=== PATIENT | male | born 1965 | race Caucasian/White ===

== ENCOUNTER 2025-06-06 22:03 | Inpatient (IN) | payer OTHER, SELFPAY ==
[2025-06-06 17:05] VITALS: BP 103/83
--- NOTE | 2025-06-06 17:21 | ED.GENMED ---
History of Present Illness
<Aleisha Kapoor PA-C - Last Filed: 06/07/25 13:19>
General
Chief Complaint: Flank Pain
Source: patient
Exam Limitations: none
Time Seen by Provider: 06/06/25 17:21
Nursing documentation reviewed up to this point in time: agreed with
History of Present Illness
History of Present Illness:
Patient is a 59-year-old male who presents to the emergency department with acute onset right flank pain. Patient states he was sitting on the couch approximately 2 hours ago when he had sudden onset pain in his right flank. Patient states pain
seemed to dissipate mildly however then returned and has been excruciating since. He did have 1 episode of syncope and accompanying nausea with a few episodes of vomiting. No obvious hematuria or notable dysuria. No associated chest pain or
shortness of breath. No fever.
Earlier today he was doing some light yard work however no known inciting injury or trauma. Pain was not clearly postprandial in nature.
No past history of kidney stones or similar symptoms. He has had an appendectomy in the past.
Past History
<Aleisha Kapoor PA-C - Last Filed: 06/07/25 13:19>
Past History
ED Past Surgical History: None
Patient has exhibited threatening behavior?: No
Social History
Tobacco: Non-smoker
Drug: None
Personal:
Living: with family
Employment: Employed
Review of Systems
<Aleisha Kapoor PA-C - Last Filed: 06/07/25 13:19>
Review of Systems
Allergies reviewed?: Yes
All Other Systems: ROS reviewed and negative except as documented in HPI and ROS
Phy Exam
<Aleisha Kapoor PA-C - Last Filed: 06/07/25 13:19>
Physical Exam
Physical Exam:
Vitals: Patient's vital signs are stable. Afebrile
General: Patient is moderately uncomfortable appearing, pale
Skin: Warm and dry, no rashes or lesions
Head: Normocephalic, atraumatic
Eyes: Sclera nonicteric.
Throat: Protecting airway
Neck: Normal ROM, no cervical spine tenderness, no meningismus
Cardiac: Regular rate and rhythm, no murmurs. Palpable and equal distal pulses bilaterally.
Pulm: Normal respiratory effort, no wheezes, rales, rhonchi heard on exam
.
Abdomen: Abdomen soft. No reproducible tenderness in abdomen. No CVA tenderness.
Extremities: No evidence of cyanosis or edema
Neuro: AAOx3. Grossly intact.
Psychiatric: Normal affect.
Course
<Aleisha Kapoor PA-C - Last Filed: 06/07/25 13:19>
Orders/Labs/Results
Orders:
Orders
06/06/25 Breakfast
Regular
At Your Request: Full Participation
Does patient need a safe tray?: No
Reason for opting out of Property Valuer order writing: Provider Decision
06/06/25 17:35
Abdomen/Pelvis wo Contrast CT [CT Abd/pelvis Wo Iv Cont] Urgent
Comment:
Reason For Exam: acute onset right flank pain
0.9% Sodium Chloride 1000 ml [Nss] 1,000 ml IV BOLUS
HYDROmorphone [Dilaudid] 0.5 mg IV NOW STA
Ondansetron Injectable [Zofran] 4 mg IV NOW STA
06/06/25 17:47
Complete Blood Count/With Diff Urgent
Comprehensive Metabolic Panel Urgent
Lipase Urgent
Comment: ADD ON
06/06/25 18:11
HYDROmorphone [Dilaudid] 0.5 mg .ROUTE .STK-MED ONE
06/06/25 18:12
HYDROmorphone [Dilaudid] 0.5 mg IV NOW STA
06/06/25 19:23
Add On- LAB Urgent
Tests Added?: lipase
06/06/25 19:25
HYDROmorphone [Dilaudid] 0.5 mg IV NOW STA
06/06/25 19:32
Urinalysis Reflex To Culture Urgent
Date Specimen was Collected: 06/06/25
Time Specimen was Collected: 19:19
Urine Microscopic Reflex Cult Urgent
Urine Culture Urgent
ABUNDIO Source: U
Specimen Description:
Date Specimen was Collected: 06/06/25
Time Specimen was Collected: 19:19
06/06/25 20:26
Acetaminophen [Tylenol] 1,000 mg PO NOW STA
Tamsulosin [Flomax] 0.4 mg PO NOW STA
06/06/25 20:42
0.9% Sodium Chloride 1000 ml [Nss] 1,000 ml IV BOLUS
06/06/25 21:29
Admit/Transfer Patient As Directed
Co-Sign Provider:
Level of Care: Inpatient admission
Assign to:: Telemetry
Physician / Group: Nii
Diagnosis: R Ureteral Stone
Reason for Telemetry: Syncope
Date to Stop Telemetry: 06/08/25
Time to Stop Telemetry: 11:00
Reason for Hospitalization: R Ureteral Stone
Expected length of stay greater than two midnights?: Yes
ELOS- Estimated Length of Stay in days: 2
I certify the patient meets the requirements for IP care: Yes
PRN Pain Medication Management As Directed
May give lesser potent ordered pain med per pt: Yes
preference::
Protocol:: Medication orders for pain may be administered in a
manner that supports deferring to patient preference
when the pt is:
- Requesting an ordered lesser potent pain medication.
Least to most potent pain medications are defined
as: acetaminophen < NSAID < tramadol < opioids
(morphine, oxycodone, hydromorphone).
- Requesting a lesser dose of the same medication IF
ORDERED.
- Requesting a less intrusive route of administration
if both routes are prescribed by the provider (PO <
IV).
06/06/25 21:30
Code Status As Directed
Resuscitation Status: Full Code
06/06/25 22:39
0.9% Sodium Chloride 1000 ml [Nss] 1,000 ml IV 200 mls/hr
Acetaminophen [Tylenol] 650 mg PO Q4HPRN PRN
HYDROmorphone [Dilaudid] 0.5 mg IV Q4HPRN PRN
Ketorolac [Toradol] 10 mg IV Q6HPRN PRN
Ondansetron Injectable [Zofran] 4 mg IV Q6HPRN PRN
06/06/25 22:39
UROLOGY CONSULT Routine
Consulting Provider: Frederick Bowling
Was physician already notified: Yes
Comment: R Ureteral Stone
Stone Analysis With Image [S] Routine
Activity As Directed
Activity Level: Ambulate
I/O [Intake/ Output] As Directed
Frequency: Per unit guidelines
Pneumatic Compression Sleeves As Directed
Type: Knee high
Strain Urine As Directed
Vital Signs As Directed
Frequency: Per unit guidelines
Weight As Directed
Frequency: Daily
Oxygen Therapy [O2 Therapy] [RESP] Routine
Titrate/Wean O2 to maintain O2 sat greater than (%): 94
DX Deep Vein Thrombosis Video Routine
06/07/25 Breakfast
NPO
Allow oral meds: Yes
Allow clear liquids: Sips of Clears
NPO for procedure after (time): 7 AM
06/07/25 08:00
Tamsulosin [Flomax] 0.4 mg PO BID
06/07/25 08:02
Basic Metabolic Panel IN AM
Complete Blood Count/No Diff IN AM
06/08/25 11:00
DC Protocol for Telemetry ONCE
Abnormal Lab Results
06/06/25 06/06/25
17:47 19:32
WBC 15.8 H 10^3/uL
(4.8-10.8)
Abs Immat Gran (auto) 0.1 H 10^3/uL
(0-0.05)
Absolute Neuts (auto) 11.3 H 10^3/uL
(1.4-6.5)
Absolute Monos (auto) 1.4 H 10^3/uL
(0.1-0.6)
Lymphocytes % 14.2 L %
(20.5-51.1)
Glucose 109 H mg/dl
(70-99)
Urine Ketones 3+ A
(Negative)
Ur Occult Blood Reflex 4+ A
(Negative)
Leukocyte Esterase Rfl 1+ A
(Negative)
Urine RBC >100 A /HPF
(0-2)
Urine Albumin (Reflex) 2+ A
(Neg - Trace)
06/06/25 17:47
06/06/25 17:47
Vital Signs
Initial and Last Documented VS:
Initial Vital Signs
Temp Pulse Resp BP Pulse Ox
98 F 59 16 103/83 98
06/06/25 17:05 06/06/25 17:05 06/06/25 17:05 06/06/25 17:05 06/06/25 17:05
Last Documented Vital Signs
Temp Pulse Resp BP Pulse Ox
98.7 F 79 16 118/66 98
06/07/25 11:31 06/07/25 11:31 06/07/25 11:31 06/07/25 11:31 06/07/25 11:31
<Teofilo Cody, DO - Last Filed: 06/06/25 20:47>
Orders/Labs/Results
Orders:
Orders
06/06/25 Breakfast
Regular
At Your Request: Full Participation
Does patient need a safe tray?: No
Reason for opting out of Property Valuer order writing: Provider Decision
06/06/25 17:35
Abdomen/Pelvis wo Contrast CT [CT Abd/pelvis Wo Iv Cont] Urgent
Comment:
Reason For Exam: acute onset right flank pain
0.9% Sodium Chloride 1000 ml [Nss] 1,000 ml IV BOLUS
HYDROmorphone [Dilaudid] 0.5 mg IV NOW STA
Ondansetron Injectable [Zofran] 4 mg IV NOW STA
06/06/25 17:47
Complete Blood Count/With Diff Urgent
Comprehensive Metabolic Panel Urgent
Lipase Urgent
Comment: ADD ON
06/06/25 18:11
HYDROmorphone [Dilaudid] 0.5 mg .ROUTE .STK-MED ONE
06/06/25 18:12
HYDROmorphone [Dilaudid] 0.5 mg IV NOW STA
06/06/25 19:23
Add On- LAB Urgent
Tests Added?: lipase
06/06/25 19:25
HYDROmorphone [Dilaudid] 0.5 mg IV NOW STA
06/06/25 19:32
Urinalysis Reflex To Culture Urgent
Date Specimen was Collected: 06/06/25
Time Specimen was Collected: 19:19
Urine Microscopic Reflex Cult Urgent
Urine Culture Urgent
ABUNDIO Source: U
Specimen Description:
Date Specimen was Collected: 06/06/25
Time Specimen was Collected: 19:19
06/06/25 20:26
Acetaminophen [Tylenol] 1,000 mg PO NOW STA
Tamsulosin [Flomax] 0.4 mg PO NOW STA
06/06/25 20:42
0.9% Sodium Chloride 1000 ml [Nss] 1,000 ml IV BOLUS
06/06/25 21:29
Admit/Transfer Patient As Directed
Co-Sign Provider:
Level of Care: Inpatient admission
Assign to:: Telemetry
Physician / Group: Nii
Diagnosis: R Ureteral Stone
Reason for Telemetry: Syncope
Date to Stop Telemetry: 06/08/25
Time to Stop Telemetry: 11:00
Reason for Hospitalization: R Ureteral Stone
Expected length of stay greater than two midnights?: Yes
ELOS- Estimated Length of Stay in days: 2
I certify the patient meets the requirements for IP care: Yes
PRN Pain Medication Management As Directed
May give lesser potent ordered pain med per pt: Yes
preference::
Protocol:: Medication orders for pain may be administered in a
manner that supports deferring to patient preference
when the pt is:
- Requesting an ordered lesser potent pain medication.
Least to most potent pain medications are defined
as: acetaminophen < NSAID < tramadol < opioids
(morphine, oxycodone, hydromorphone).
- Requesting a lesser dose of the same medication IF
ORDERED.
- Requesting a less intrusive route of administration
if both routes are prescribed by the provider (PO <
IV).
06/06/25 21:30
Code Status As Directed
Resuscitation Status: Full Code
06/06/25 22:39
0.9% Sodium Chloride 1000 ml [Nss] 1,000 ml IV 200 mls/hr
Acetaminophen [Tylenol] 650 mg PO Q4HPRN PRN
HYDROmorphone [Dilaudid] 0.5 mg IV Q4HPRN PRN
Ketorolac [Toradol] 10 mg IV Q6HPRN PRN
Ondansetron Injectable [Zofran] 4 mg IV Q6HPRN PRN
06/06/25 22:39
UROLOGY CONSULT Routine
Consulting Provider: Frederick Bowling
Was physician already notified: Yes
Comment: R Ureteral Stone
Stone Analysis With Image [S] Routine
Activity As Directed
Activity Level: Ambulate
I/O [Intake/ Output] As Directed
Frequency: Per unit guidelines
Pneumatic Compression Sleeves As Directed
Type: Knee high
Strain Urine As Directed
Vital Signs As Directed
Frequency: Per unit guidelines
Weight As Directed
Frequency: Daily
Oxygen Therapy [O2 Therapy] [RESP] Routine
Titrate/Wean O2 to maintain O2 sat greater than (%): 94
DX Deep Vein Thrombosis Video Routine
06/07/25 Breakfast
NPO
Allow oral meds: Yes
Allow clear liquids: Sips of Clears
NPO for procedure after (time): 7 AM
06/07/25 08:00
Tamsulosin [Flomax] 0.4 mg PO BID
06/07/25 08:02
Basic Metabolic Panel IN AM
Complete Blood Count/No Diff IN AM
06/08/25 11:00
DC Protocol for Telemetry ONCE
Abnormal Lab Results
06/06/25 06/06/25
17:47 19:32
WBC 15.8 H 10^3/uL
(4.8-10.8)
Abs Immat Gran (auto) 0.1 H 10^3/uL
(0-0.05)
Absolute Neuts (auto) 11.3 H 10^3/uL
(1.4-6.5)
Absolute Monos (auto) 1.4 H 10^3/uL
(0.1-0.6)
Lymphocytes % 14.2 L %
(20.5-51.1)
Glucose 109 H mg/dl
(70-99)
Urine Ketones 3+ A
(Negative)
Ur Occult Blood Reflex 4+ A
(Negative)
Leukocyte Esterase Rfl 1+ A
(Negative)
Urine RBC >100 A /HPF
(0-2)
Urine Albumin (Reflex) 2+ A
(Neg - Trace)
06/06/25 17:47
06/06/25 17:47
Vital Signs
Initial and Last Documented VS:
Initial Vital Signs
Temp Pulse Resp BP Pulse Ox
98 F 59 16 103/83 98
06/06/25 17:05 06/06/25 17:05 06/06/25 17:05 06/06/25 17:05 06/06/25 17:05
Last Documented Vital Signs
Temp Pulse Resp BP Pulse Ox
98.7 F 79 16 118/66 98
06/07/25 11:31 06/07/25 11:31 06/07/25 11:31 06/07/25 11:31 06/07/25 11:31
<Aleisha Kapoor PA-C - Last Filed: 06/07/25 13:19>
MDM/Problems Addressed
Differential Diagnosis Includes:
Not limited to: Renal colic, UTI, muscle strain/spasm, biliary colic, etc.
MDM/Problems Addressed:
59-year-old male with acute onset right flank pain accompanied by one episode of syncope and nausea. No fevers, vomiting, urinary discomfort. No chest pain or shortness of breath. No known inciting trauma.
Vitals and physical exam as above.
Clinical picture most consisting with renal colic. Suspect syncopal event likely vagal in nature secondary to pain. No exam findings consistent with vascular emergency. Patient is hemodynamically stable.
ED plan: labs, UA, noncontrast CT scan abdomen/pelvis. Will treat pain, give IV fluids and reassess.
Update: CBC reveals leukocytosis, which I suspect to be reactive to pain/ syncope. Chemistry unremarkable with no evidence of renal insufficiency. Urine with many RBCs however no clear indicators of associated infection. CT scan shows 5 mm
obstructing stone at right UVJ with moderate hydronephrosis.
Findings discussed with patient and family at length. He remains with persistent discomfort despite multiple rounds of IV Dilaudid. Patient does have aspirin allergy and is unable to receive Toradol.
While no evidence of associated infection � patient will require admission to the hospital for pain control and possible urology evaluation.
Patient accepted to hospitalist service in stable condition. Urology aware and will evaluate tomorrow to see if stone has passed vs need for possible stent. Patient and patient�s family comfortable with plan.
Chronic conditions affecting care:
N/A
Acute Exacerbation and/or Progression of Chronic Illness:
N/A
<Aleisha Kapoor PA-C - Last Filed: 06/07/25 13:19>
*Pulse Oximetry
SaO2: 98
Oxygen Mode of Delivery: Room air
Patient hypoxic: no
*EKG
Interpreted by ED Provider?: NA
*Production Expediter Interpretation
Rate: Production Expediter- N/A
*Critical Care Note
Total Time (30-74mins, 75-104mins- exclusive of procedures): Not Applicable
<Aleisha Kapoor PA-C - Last Filed: 06/07/25 13:19>
Patient Management
Discussion with other providers: Hospitalist and Edging Machine Catcher (Case discussed with urology)
Escalation/DeEscalation of care consider admission/obs:
Admit for pain management, possible urology evaluation and stent placement
ED Attending Note
<Aleisha Kapoor PA-C - Last Filed: 06/07/25 13:19>
-
Portions of this chart may have been created with voice recognition software.� Occasional wrong word or��sound alike� substitutions may have occurred due to the inherent limitations of voice recognition software.
<Teofilo Cody DO - Last Filed: 06/06/25 20:47>
ED Attending Note
Patient seen and examined by attending physician: Yes
I performed the substantive portion of visit, reviewed & personally made and approve the management plan that is documented in note by myself or GINNA.: Yes
I performed a history and physical exam of patient and discussed management with resident, I reviewed resident's note and agree with documented findings and plan of care.: Yes
ED Attending Note:
59 y/o male presents for treatment and eval of severe R flank pain now migrating to RLQ. No prior h/o same. Pt required multiple doses of narcotic for pain relief and still reporting pain to be severe. VS reviewed, mmm, GCS 15, pt laying
comfortably in the stretcher during interview. I reviewed all test results with physician medical support assistant, patient and present bedside. I discussed with them benefit of admission given severe pain which is uncontrolled with medications administered
in the ER. I discussed with them likely passage of stone, however he requires additional pain relief. They agree with plan at current. PA was able to review presentation with hospitalist who accepts patient for admission
Discharge Plan
Departure
Patient Disposition: Admit
Date of Disposition: 06/06/25
Time of Disposition: 20:25
Presentation/result/management discussed w/ accepting MD/DO: Hospitalist
Discharge Problem:
Calculus of ureterovesical junction (UVJ), Intractable pain
Interventions
Interventions:
*Risk Screen - Suicide Last Done: 06/06/25 22:57
*General Assessment Last Done: 06/06/25 17:52
*Neglect/Abuse Screening Last Done: 06/06/25 17:06
*ED- Fall Risk Assessment Last Done: 06/06/25 17:52
*ED COVID-19 Vaccine History Last Done: 06/06/25 22:57
*Nursing Disposition Last Done: 06/06/25 22:53
AD-Ycsvcu-Lbcivtdvxt Assessment Last Done: 06/06/25 21:30
ED-Male Genitourinary Assessment Last Done: 06/06/25 21:30
Discharge Date and Time
Discharge Date/Time: 06/06/25 22:54
[2025-06-06] MEDS: DILAUDID 0.5 MG IV ×3 (17:48→19:31)
[2025-06-06] MEDS: ZOFRAN 4 MG IV (17:48)
[2025-06-06] MEDS: NSS 1000 IV ×3 (17:50→23:55)
[2025-06-06 17:52] VITALS: BMI 19.0
[2025-06-06 18:18] LABS: Hematocrit 43.1 % (39.0-52.0); Hemoglobin 14.4 g/dL (13.0-18.0); Mean Corp Hgb Conc. 33.4 g/dL (33.0-37.0); Mean Corpuscular Volume 86.4 fL (80.0-94.0); Nucleated Red Blood Cells % 0 % (-); Platelet Count 236 10^3/uL (130-400); Red Cell Dist. Width 13.1 % (11.5-14.5)
[2025-06-06 18:33] LABS: ALT (SGPT) 32 U/L (0-50); AST (SGOT) 28 U/L (17-59); Albumin 4.2 g/dl (3.5-5.0); Alkaline Phosphatase 40 U/L (38-126); Calcium 9.5 mg/dl (8.4-10.2); Carbon Dioxide 26 mmol/L (22-30); Chloride 104 mmol/L (98-107); Estimated Creatinine Clearance 58 ml/min; Glucose 109 mg/dl (70-99); Potassium 4.1 mmol/L (3.5-5.1); Sodium 137 mmol/L (135-145); Total Protein 6.8 g/dl (6.3-8.2); eGFR > 60.00
[2025-06-06 18:36] VITALS: BP 121/75
[2025-06-06 18:42] LABS: Blood Urea Nitrogen 20 mg/dl (9-20)
[2025-06-06 19:47] LABS: Urine Character Cloudy (Clear)
[2025-06-06 19:54] LABS: Lipase 68 U/L (23-300)
[2025-06-06 20:06] VITALS: BP 129/74
[2025-06-06 20:10] LABS: Urine Squamous Cell 0-2 /LPF (Few)
[2025-06-06 20:11] LABS: Urine Red Blood Cell >100 /HPF (0-2)
[2025-06-06] MEDS: FLOMAX 0.4 MG PO (20:58)
[2025-06-06] MEDS: TYLENOL 1000 MG PO (20:58)
--- NOTE | 2025-06-06 21:33 | HPS.HSE ---
Family Physician
-
Family Physician: NOT KNOW UNKNOWN - PT DOES
Chief Complaint
-
R Flank Pain
History of Present Illness
Patient is a 59y M with no significant PMH who presents to ED complaining of R flank pain since 2 PM today. Patient states that pain was initially quite severe and associated with diaphoresis and - he believes - a brief episode of syncope. Hi
pain passed after several minutes; however, it then returned and has persisted. Pain is quite severe and unrelenting. No improvement with changes in position, etc. No prior history of similar symptoms, kidney stones, etc.
Medical History
Past Medical History
Past Medical History: Reports Other
Additional Past Medical History:
Parotid Tumor
Past Surgical History: Reports Other
Additional Past Surgical History:
Right Parotid Resection
Appendectomy
Social History
Tobacco: Non-smoker
Alcohol: Occasional
Drug: None
Family History
Family History: Not pertinent
Allergies / Home Medications
Allergies reflects when Allergies were last updated in [facility].
Home Medications with original date entered in [facility]
Allergy/Medication List:
Allergies
Allergy/AdvReac Type Severity Reaction Status Date / Time
aspirin Allergy Hives Verified 05/23/20 00:59
Home Medications
No Meds [No Current Medications] 06/06/25
Review of Systems
-
History Source: Patient
A 12 point ROS was completed and negative except as noted: Yes
Constitutional: Denies Fever or Chills
Respiratory: Denies Cough or Trouble Breathing
Cardiac: Reports Diaphoresis and Syncope; Denies Chest Pain or Palpitations
Abdomen/GI: Denies Abdominal Pain, Nausea, Vomiting or Diarrhea
: Reports Flank Pain; Denies Dysuria or Bleeding
Neurological: Denies Dizzy or Headache
Psych: Denies Depression or Anxiety
Physical Exam
Vital Signs
Vital Signs
Temp Pulse Resp BP Pulse Ox
98 F 49 12 121/75 97
06/06/25 17:05 06/06/25 18:45 06/06/25 18:45 06/06/25 18:36 06/06/25 18:45
Physical Exam
General: Other (59y M in moderate distress due to pain.)
HEENT: Moist mucous membranes and PERRLA
Respiratory: Clear; No Wheezes, Rales or Rhonchi
Cardiac: S1/S2 and Regular Rhythm; No Murmur
GI: Soft, Non Tender, Non Distended and Normal Bowel Sounds
Genito-urinary: Other (R CVAT)
Musculoskeletal: No Clubbing, No Cyanosis and No Edema
Neuro: AO x 3
Laboratory Results
-
06/06/25 17:47
06/06/25 17:47
Laboratory Results
Total Bilirubin 0.9 mg/dl (0.2-1.3) 06/06/25 17:47
AST 28 U/L (17-59) 06/06/25 17:47
ALT 32 U/L (0-50) 06/06/25 17:47
Alkaline Phosphatase 40 U/L (38-126) 06/06/25 17:47
Lipase 68 U/L (23-300) 06/06/25 17:47
Impression/Plan
-
A/P: Patient is a 59y M with no significant PMH who presents to ED complaining of R flank pain.
Right UVJ Stone
Moderate Hydronephrosis secondary to the above
- Admit for further evaluation and treatment.
- IVFs, pain control, tamsulosin, etc.
- Strain urine.
- NPO after 7 AM for possible OR if stone does not pass prior.
- Stone analysis as this is his initial episode.
- Encourage adequate fluid intake.
Syncope
- Very likely vasovagal event triggered by pain.
- Monitor on tele overnight.
DVT Prophylaxis: SCDs
Code Status: Full
[2025-06-06 22:00] VITALS: BP 152/93
[2025-06-06 22:50] VITALS: BP 138/86; BMI 19.3
--- NOTE | 2025-06-06 22:50 | PTCARENOTE ---
Patient arrived from ED via stretcher and ambulated to the bed with at the bedside. Patient is AAOx3, VSS, and complains of 8/10 right flank pain, but subsided after sitting. Patient is oriented to the room and is resting comfortably with the
call cazares within reach
[2025-06-07 03:22] VITALS: BP 129/72
[2025-06-07] MEDS: NSS 1000 IV ×2 (04:52→10:05)
[2025-06-07 05:25] VITALS: BMI 19.6
--- NOTE | 2025-06-07 06:50 | W.PN.UPDATE ---
Update Note
Progress Note Update
Patient admitted to Hospitalist w/ intractable right renal colic.
CT imaging notable for 5 mm right UVJ stone w/ moderate right hydroureteronephrosis.
Afebrile, non-toxic, HDS.
UA not indicative of UTI.
WBC WNL.
Cr WNL.
- IVF hydration
- Strain urine
- Continue tamsulosin 0.4 mg daily
- To OR today (after 4pm) for cysto + right ULS
[2025-06-07 07:00] VITALS: BP 113/63
[2025-06-07] MEDS: FLOMAX 0.4 MG PO (08:07)
[2025-06-07 09:18] LABS: Hematocrit 37.6 % (39.0-52.0); Hemoglobin 12.6 g/dL (13.0-18.0); Mean Corp Hgb Conc. 33.5 g/dL (33.0-37.0); Mean Corpuscular Volume 89.1 fL (80.0-94.0); Platelet Count 188 10^3/uL (130-400); Red Cell Dist. Width 13.1 % (11.5-14.5)
--- NOTE | 2025-06-07 09:30 | PTCARENOTE ---
pt aaox3. states no pain since midnight. pt at bedside. straining urine. no sign of stone. reviewed plan of care and scheduled plan for OR. pt questioned if he needs it since pain free. reached out to hosp and urology. KUB ordered.
[2025-06-07 09:50] LABS: Blood Urea Nitrogen 16 mg/dl (9-20); Calcium 8.4 mg/dl (8.4-10.2); Carbon Dioxide 26 mmol/L (22-30); Chloride 110 mmol/L (98-107); Estimated Creatinine Clearance 72 ml/min; Glucose 80 mg/dl (70-99); Potassium 4.5 mmol/L (3.5-5.1); Sodium 138 mmol/L (135-145); eGFR > 60.00
[2025-06-07 11:31] VITALS: BP 118/66
--- NOTE | 2025-06-07 11:50 | W.PN.HOSP.TC ---
Today's Communication/Plan
-
d/c after pt speaks with urology
Assessment / Plan
Assessment / Plan
pt is a 59 yo male
Right UVJ Stone with Moderate Hydronephrosis secondary--UA does not appear infected--WBC elevation could be reactive--cont flomax--since pain free, has been cleared for d/c by urology--pt and have multiple questions - Strain urine - Stone
analysis as this is his initial episode.
Syncope - Very likely vasovagal event triggered by pain.
DVT Proph-- SCDs
Code Status-- Full
Anticipated Discharge: Today
Subjective/Interval History
-
Date of Service: June 07, 2025
pt without further pain
and pt with a myriad of questions
Objective Data
-
Labs:
Laboratory Results
06/07/25
08:02
WBC 11.1 H
Hgb 12.6 L
Hct 37.6 L
Plt Count 188 D
Sodium 138
Potassium 4.5
Chloride 110 H
Carbon Dioxide 26
BUN 16
Creatinine 1.0
Glucose 80
Calcium 8.4
Vital Signs:
max temp for 24 hours
06/06/25
22:50
Temp 99.2 F
Vital Signs
Temp Pulse Resp BP Pulse Ox
98.7 F 79 16 118/66 98
06/07/25 11:31 06/07/25 11:31 06/07/25 11:31 06/07/25 11:31 06/07/25 11:31
I&O
06/06/25 06/07/25 06/08/25
06:59 06:59 06:59
Intake Total 1480 / 1480
Output Total 1425 / 1425
Balance 55 / 55
Review of Systems
-
All other systems: Reviewed and negative
Physical Exam
-
General: Well Developed, Well Nourished and No Apparent Distress
HEENT: Normocephalic and Atraumatic
Respiratory: Clear to Auscultation; Negative Wheezes or Rhonchi
Cardiac: Regular Rhythm and S1/S2; Negative Murmur
GI: Soft, Nontender, Nondistended and Normal Bowel Sounds
Genito-urinary: No Costovertebral Tender
Musculoskeletal: No Clubbing, No Cyanosis and No Edema
Skin: Warm
Neuro: Awake
--- NOTE | 2025-06-07 13:13 | CM ---
Met with pt and bedside. Lives with and 4 children in a 3-story home; 2 steps at the entrance to the home. No hx of DME, HC or SNF. No insecurities identified. Confirmed No PCP,RX
Pt discharged to home no needs
PCP - none
RX [facility] [address]
--- NOTE | 2025-06-07 14:34 | W.DCSUMMARY ---
Discharge Summary
Discharge Data
Date of Admission: 06/06/25
Date of Discharge: 06/07/25
-
Pending Results: Yes
Additional Pending Results:
urine culture
Hospital Course
Primary care physician : None Listed
Principal Discharge diagnosis : Right UVJ stone with moderate hydronephrosis
Chronic Discharge diagnosis : None
Hospital Course : Patient 59-year-old male without any past medical history who presented complaining of right flank pain since 2 PM on the day of admission. He stated the pain was quite severe and associated with diaphoresis and he believes a
brief episode of syncope. He states that the pain is severe and unrelenting. It has not improved with any changes or position. Patient was found to have a right UVJ stone. Patient was admitted.
Problem #1: Right UVJ stone with moderate hydronephrosis. Urinalysis did not appear infected but was sent for culture which is pending at this time. Plans were for the patient to go to the operating room given his severe pain. Approximately
midnight on 06/07/2025, pain abated and he has been pain-free since. Urology is now recommending discharge home with pain control, tamsulosin, increased fluid intake, and follow-up in the office this coming Saturday for further evaluation. Patient is
stable for discharge home at this time.
Important imaging findings :
CT SCAN ABDOMEN/PELVIS IMPRESSION:
5 mm renal calculus in the distal right ureter/ureteral vesicle junction with associated moderate right hydroureteronephrosis.
Discharge Plan
-
Patient Disposition: Home (Routine Discharge)
Discharge Diagnosis/Procedures: right renal stone
Condition: Good
Diet: No restrictions
Additional Diets: encourage fluid intake
Activity: As tolerated
Driving Restrictions: As prior to admission
Bathing Restrictions: None
Activity Restrictions/Additional Instructions:
return to the hospital IF you develop fevers, uncontrolled chills, frankly bloody urine, uncontrolled pain
strain urine and submit stone to urology (if it passes) for stone analysis
Referrals:
Frederick Bowling MD [Active, Urology] - 06/11/25
UNKNOWN - PT DOES,NOT KNOW [Family Provider] - in less than 1 week
Prescriptions:
New
acetaminophen 325 mg Tablet
650 mg PO Q4HPRN PRN (Reason: Mild Pain / Temp > 101) Qty: 0 0RF
tamsulosin 0.4 mg capsule
0.4 mg PO HS Qty: 30 0RF
oxycodone 5 mg tablet
2.5 mg PO Q6H PRN (Reason: severe pain) Qty: 10 0RF
Discharge Orders:
Discharge Patient (As Directed); Ordered 06/07/25
Ordered By: Neeta Torres
Discharge Date and Time
Discharge Date/Time: 06/07/25 14:04
Print Language: FRENCH
== END 2025-06-07 14:04 | disposition home or self-care (01) | DRG 694 ==
LOC: 4 EAST ACU 22:03
PROVIDERS: Physician Assistant; ADMITTING PHYSICIAN Hospitalist; ATTENDING PHYSICIAN Internal Medicine; EMERGENCY PHYSICIAN Emergency Medicine
DX: N13.2 Hydronephrosis with renal and ureteral calculous obstruction (principal); D72.829 Elevated white blood cell count, unspecified; Z88.6 Allergy status to analgesic agent
CPT/HCPCS: 74018; 74176; 80048; 80053; 81003; 81015; 83690; 85025; 85027; 87086; 96361; 96374; 96375; 96376; 99285

== ENCOUNTER → 2025-06-15 14:14 | Outpatient (REF) | payer OTHER, SELFPAY | LOC: RAD 14:14 | PROVIDERS: ATTENDING PHYSICIAN Surgery; FAMILY PHYSICIAN Internal Medicine | DX: N20.0 Calculus of kidney (principal) | CPT/HCPCS: 74018 ==

== ENCOUNTER 2025-08-23 06:22 | Day surgery (SDC) | payer OTHER, SELFPAY | END 2025-08-23 11:38 | disposition home or self-care (01) | LOC: GI 06:22 | PROVIDERS: ATTENDING PHYSICIAN Internal Medicine Gastroenterology | DX: K62.5 Hemorrhage of anus and rectum (principal); K57.30 Diverticulosis of large intestine without perforation or abscess without bleeding; K64.8 Other hemorrhoids; K63.89 Other specified diseases of intestine; K52.82 Eosinophilic colitis | CPT/HCPCS: 45380; 88305 ==